=== PATIENT | female | born 1970 | race Caucasian/White ===

== ENCOUNTER 2020-12-03 14:15 | Outpatient (CLI) | payer BC, SELFPAY ==
--- NOTE | ~2020-12-03 | XR_ITS ---
EXAMINATION: XR sacroiliac joints min 3V DATE: 12/03/2020 14:37 INDICATION: Inflammatory arthritis. Rheumatoid arthritis. TECHNIQUE: 3 views of the sacroiliac joints were obtained. COMPARISON: Pelvis radiograph 02/17/2018 FINDINGS: Bone alignment is normal. No fracture. There is severe lumbar spondylosis. There is mild os teoarthritis of the sacroiliac joints. IMPRESSION: 1. Mild osteoarthritis of the sacroiliac joints. No evidence of inflammatory arthropathy. Reviewed, dictated and finalized at location A. IMPRESSION: 1. Mild osteoarthritis of the sacroiliac joints. No evidence of inflammatory ar thropathy.
== END 2020-12-03 14:16 | disposition home or self-care (01) ==
LOC: ANHIMG 14:23
PROVIDERS: PCP Family Medicine; Visit Provider Physician Assistant
DX: M06.4 Inflammatory polyarthropathy (principal); M53.3 Sacrococcygeal disorders, not elsewhere classified
CPT/HCPCS: 72202

== ENCOUNTER 2022-07-22 09:08 | Outpatient (CLI) | payer BC, SELFPAY ==
--- NOTE | ~2022-07-22 | US_ITS ---
US abdomen limited INDICATION: Right upper quadrant pain. PROCEDURE: Realtime right upper abdominal ultrasound. COMPARISON: CT dated 02/11/2014 FINDINGS: The pancreas is normal without focal mass or pancreatic ductal dilation. Liver echotexture is normal without focal mass or intrahepatic biliary dilatation. There is normal directional flow i n the portal vein. There are gallstones. Common bile duct measures 6 mm. No sonographic Rowland's sign. IMPRESSION: 1: Cholelithiasis. Reviewed, dictated and finalized at location L. IMPRESSION: 1: Cholelithiasis.
== END 2022-07-22 09:09 | disposition home or self-care (01) ==
PROVIDERS: PCP Family Medicine; Visit Provider Physician Assistant Medical
DX: K80.20 Calculus of gallbladder without cholecystitis without obstruction (principal)
CPT/HCPCS: 76705

== ENCOUNTER 2022-08-23 09:45 | Outpatient (CLI) | payer BC, SELFPAY ==
--- NOTE | 2022-08-23 09:56 | ECG_ITS ---
Measurements Intervals [place] Rate: 57 P: 42 [place]: 160 QRS: -20 QRSD: 102 T: 24 QT: 423 QTc: 415 Interpretive Statements SINUS BRADYCARDIA MODERATE VOLTAGE CRITERIA FOR LVH, CONSIDER NORMAL VARIANT [MEETS CRITERIA IN ONE OF: R(aVL), S(V1), R(V5), R(V5/V6)+S(V1)] ABNORMAL ECG NO PREVIOUS ECG AVAILABLE FOR COMPARISON Electronically Signed On 08-23-2022 10:43:15 CDT by Hugo Rodriguez M.D.
[2022-08-23 10:47] LABS: Alanine Aminotransferase 124 U/L (6-35); Albumin Level 4.2 g/dL (3.5-5.1); Alkaline Phosphatase 85 U/L (38-126); Amylase 74 U/L (30-110); Aspartate Amino Transferase 45 U/L (14-36); Bilirubin,Total 0.5 mg/dL (0.2-1.3); Lipase 143 U/L (23-300)
== END 2022-08-23 09:46 | disposition home or self-care (01) ==
LOC: ANHSURGERY 09:49
PROVIDERS: PCP Family Medicine; Visit Provider Surgery
DX: K80.10 Calculus of gallbladder with chronic cholecystitis without obstruction (principal); I10 Essential (primary) hypertension; Z01.818 Encounter for other preprocedural examination
CPT/HCPCS: 36415; 80076; 82150; 83690; 86850; 86900; 86901; 93005

== ENCOUNTER 2022-08-25 01:44 | Day surgery (SDC) | payer BC, SELFPAY ==
[2022-08-19 11:12] VITALS: BMI 30.9
--- NOTE | 2022-08-19 11:20 | PC.NURSE ---
Report to the Outpatient Waiting Room, entrance under the green pavilion located off [facility], at time 8:30 on date 08/25/22. Planned Procedure Time: 10:30. Time changes happen often and if your time is changed the preop area will call you the afternoon before. - You and your visitor will be asked to self-screen and do not enter if you have any COVID symptoms. - A mask is optional within the hospital at this time. Patients may have clear liquids (water, carbonated beverages, clear teas, apple juice) until 3 hours prior to surgery (7:30) with a maximum of 20 ounces. - No food from midnight until time of surgery Take the following medications with a SIP of water the morning of surgery: NONE DO NOT STOP ANY OF YOUR OTHER PRESCRIPTION MEDICATIONS PRIOR TO SURGERY?EXCEPT THE FOLLOWING Medications to discontinue per physician: VITAMINS/SUPPLEMENTS Date to take last dose: 08/21/[address] SMITH Please no make-up, nail turkmen, hairspray, perfume, deodorant, or body powder the day of surgery. No jewelry (including any body piercings) or valuables the day of surgery, leave them at home. Please take a shower or bath the night before, or the morning of, surgery with an antibacterial soap (HIBICLENS). Wear comfortable, loose fitting clothing. - Jewelry must be removed prior to entering the operating room. Rings and piercings that are not removed may be cut off. - The hospital will not accept responsibility for valuables. - Please leave all valuables, including medications, at home the day of surgery. If you are going home after surgery, a licensed nascar driver must drive you home. - NO public transportation without another adult if you receive anesthesia. - We recommend that an adult stay with you for 24 hours following discharge. - We also recommend that you do not drive, make important decision, drink alcoholic beverages, or take any drugs that were not prescribed by your health care provider for at least 24 hours after your discharge time. Follow any additional instructions given to you from your surgeon. If you or anyone in your household have experienced Covid symptoms in the past week, please notify your surgeon or the nurse liaison at the phone number below for possible testing. Telephone instructions given to PT - DANIEL PRESTON and asked if any additional questions and then verbalized understanding. Patient advised to call surgeon office or pre surgery nurse liaison [phone] if any additional questions.
[2022-08-25] VITALS (11 sets, daily range): BP systolic 96–158; BP diastolic 51–90; PULSE 52–79; RESP 12–17; TEMP 36.2–36.9; O2SAT 92–100
[2022-08-25] MEDS: ACETAMINOPHEN 500 MG TABLET 1000 MG PO (09:00)
--- NOTE | 2022-08-25 09:03 | P.PNAN_ITS ---
Anes - Initial Pre Proc Eval Procedure: Operation Date: 08/25/22 10:30 Proposed Procedures p Laparoscopic Cholecystectomy - Ángel Estrella MD Date/Time: 08/25/22 09:03 Surgeon: Ángel Estrella MD Pre Op Diagnosis: chronic cholecystitis with stones Patient Data Age: 51 Gender: F Height: 1.63 m Weight: 81.65 kg Allergies Allergy/AdvReac Type Severity Reaction Status Date / Time gadobenic acid Allergy Intermediate Hives Verified 08/25/22 08:51 [From contrast - MRI] Home Medications Medication Instructions Recorded Confirmed Type diclofenac sodium 75 mg 75 mg PO BID 03/03/21 08/25/22 History tablet,delayed release folic acid 1 mg tablet 1 mg PO DAILY 09/02/21 08/25/22 History methotrexate sodium 2.5 mg tablet 15 mg PO WEEKLY 09/02/21 08/19/22 History lisinopril 10 mg tablet 10 mg PO DAILY #90 tabs 06/25/22 08/25/22 Rx Patient hx anesthesia problems: none Family hx anesthesia problems: none Results Review: All pre-operative results and documents have been reviewed as part of the pre- operative evaluation. [facility] Past Medical History Medical History Adult BMI 35.0-35.9 kg/sq m Cervical cancer Essential hypertension Melanoma Surgical History Surgical History History of carpal tunnel release Family History Family History Other Family history of elevated blood lipids Hypertension Social History Social History Smoking status: Never smoker Second hand tobacco smoke exposure: No Alcohol intake: current Drinks per week: 0 Alcohol use details: VERY RARE Substance use: never Substance use type: does not use Living arrangements: with family Occupation/Education: unemployed Gender identity (if verbalized by the patient): Female Sexual Orientation (if Verbalized by the Patient): Straight or Heterosexual Spiritual care concerns: No Agree to blood products: Yes Anes - Eval Final PreProcedure Day of Procedure 08/25/22 09:03 Patient weight: obese Heart: regular rate and rhythm Lungs: clear to auscultation Airway: Mallampati scale class II Neurological: alert and oriented Last oral intake: >/= 8 hours ASA classification: III Emergent: no Anesthetic plan: proceed Anesthesia type and monitoring: general ETT and standard monitoring Results Review: All pre-operative results and documents have been reviewed as part of the pre- operative evaluation. Informed Consent: The patient's anesthetic plan and its attendant risks and benefits were discussed with the patient/family/POA. Questions were solicited and answers provided to the satisfaction of the patient/family/POA.
[2022-08-25] MEDS: LACTATED RINGERS 1,000 ML 30 ML IV CONT ×2 (09:15→10:39)
[2022-08-25] MEDS: KETOROLAC 15 MG/ML VIAL (*BKC) IV PUSH (09:20)
--- NOTE | 2022-08-25 09:39 | WPDHPUPDATE1 ---
History and Physical Update Update Date/Time: 08/25/22 09:39 History and Physical has been reviewed, including an updated exam of the patient. There are NO changes in the patient's condition. Risks, benefits, and alternatives have been discussed and questions answered. Patient agrees to proceed with procedure.
[2022-08-25] MEDS: ceFAZolin 2 GM/D5W 50 ML 2 GM/50 ML BAG IVPB (09:55)
--- NOTE | 2022-08-25 10:55 | P.OP_ITS ---
Procedure Note - Detailed Date of Procedure 08/25/22 Pre-op Diagnosis chronic cholecystitis with stones Post-op Diagnosis Same Procedure Performed Laparoscopic cholecystectomy Surgeon Ángel Estrella MD [employer] Judi Jasso [facility] Anesthesia General and Local Indications Patient has been experiencing mid back pain that radiates around to the right upper quadrant particularly after fatty meals. She had a gallbladder ultrasound which showed multiple gallstones. She has lost 40-50 lb by choice. She has a strong family history of gallbladder disease as well. She is taken to surgery now for laparoscopic cholecystectomy. Findings Gallbladder had chronic inflammatory changes with mild gallbladder wall thickening and adhesions. The gallbladder itself was completely filled with gallstones. There was no biliary ductal dilatation. No liver abnormalities were appreciated. Description of Procedure Patient was taken to surgery and induced into general anesthesia. The abdomen i s prepped and draped. Trocars were placed in the usual fashion using [email or web address] optical trocars and a 5 mm camera. The gallbladder was freed from adhesions and retracted anterosuperiorly. The gallbladder was literally filled with gallstones and there was no value in trying to decompress it with a laparoscopic aspirator as there was very little fluid within. Once the gallbladder was retracted, we placed traction on the infundibulum and dissected in the cholecystohepatic triangle. The cystic duct and cystic artery were dissected out very clearly. The gallbladder was dissected off the liver at its lower 3rd. Critical view was achieved. We then securely clipped and divided the cystic duct and cystic artery. The gallbladder was continued to be dissected free of its attachments to the liver. Cautery was used for hemostasis during this dissection. Once the gallbladder was freed, it was placed in an Endo-Catch bag and retrieved through the 10 11 epigastric trocar. Due to the n umber of gallstones and the slightly thickened gallbladder wall, the epigastric trocar site had to be slightly enlarged to accommodate the gallbladder. After the gallbladder was removed, we replaced the epigastric trocar reviewed the right upper quadrant. Gallbladder fossa was quite dry and there was no evidence of bleeding or bile leakage. We then evacuated CO2 and removed the trocar sleeves. Fascia at the epigastric trocar site was closed with 0 Vicryl suture. The subcutaneous was closed with 3-0 Vicryl suture. All skin wounds were closed with subcuticular 4-0 Monocryl skin suture. The wounds were dressed with Exofin surgical adhesive. The patient was awakened and taken to recovery in good condition. Sponge needle counts were correct x2. Estimated Blood Loss -5 Drains No Packing No Pathology Yes (Gallbladder) Complications No immediate complications Condition Stable Disposition PACU [facility] Billing Surgery - Charge Forward: Surgery Billing (Laparoscopic cholecystectomy)
[2022-08-25] MEDS: fentaNYL CITRATE INJ (*CRX) 100 MCG/2 ML VIAL 25 MCG IV PUSH ×3 (11:08→11:25)
[2022-08-25] MEDS: oxyCODONE HCL (*CRX) 5 MG TAB IR PO (11:43)
[2022-08-25] MEDS: ONDANSETRON INJ 4 MG/2 ML VIAL IV PUSH (12:31)
== END 2022-08-25 13:06 | disposition home or self-care (01) ==
PROVIDERS: PCP Family Medicine; Visit Provider Surgery
PROC: 0FT44ZZ Resection of Gallbladder, Percutaneous Endoscopic Approach (ICD-10-PCS; CPT 47562; principal; 2022-08-25 10:30)
DX: K80.10 Calculus of gallbladder with chronic cholecystitis without obstruction (principal); I10 Essential (primary) hypertension; E66.9 Obesity, unspecified; Z68.30 Body mass index [BMI] 30.0-30.9, adult
CPT/HCPCS: 47562; 88304; A9270; C1713; J0690; J1100; J1885; J2250; J2405; J2704; J3010; J7030; J7120

== ENCOUNTER 2023-06-23 14:06 | Outpatient (CLI) | payer BC, SELFPAY ==
--- NOTE | ~2023-06-23 | XR_ITS ---
XR knee LT 3V 06/23/2023 14:21 Indication: Left knee pain Procedure: 3 views left knee Comparison: 02/17/2018 Findings: No fracture, subluxation or dislocation. There is mild patellofemoral compartment osteoarth ritis. Impression: 1: Mild osteoarthritis. Reviewed, dictated and finalized at location B. Impression: 1: Mild osteoarthritis.
== END 2023-06-23 14:07 ==
PROVIDERS: PCP Family Medicine; Visit Provider Physician Assistant
DX: M17.12 Unilateral primary osteoarthritis, left knee (principal)
CPT/HCPCS: 73562

== ENCOUNTER 2023-10-24 13:27 | Outpatient (CLI) | payer BC, SELFPAY ==
--- NOTE | ~2023-10-24 | MM_ITS ---
EXAMINATION: MM screening julissa BI w nazario HISTORY: Screening TECHNIQUE: Craniocaudal and mediolateral oblique 3-D tomosynthesis images were obtained and synthetic 2-D images were generated. CAD analysis was submitted and interpreted. COMPARISON: No prior studies for comparison. BREAST PARENCHYMAL COMPOSITION: Not dense: There are scattered areas of fibroglandular density. FINDINGS: There are asymmetries in the upper outer quadrant of the right breast. No mammographic evid ence for malignancy in the left breast. IMPRESSION: 1. Right breast asymmetries. 2. Recommend comparison to previous outside mammograms. BI-RADS Category 0: Incomplete: Needs additional imaging evaluation. Reviewed, dictated and finalized at location B.
== END 2023-10-24 13:28 ==
LOC: MICIMG 13:28
PROVIDERS: PCP Family Medicine; Visit Provider Family Medicine
DX: Z12.31 Encounter for screening mammogram for malignant neoplasm of breast (principal); R92.8 Other abnormal and inconclusive findings on diagnostic imaging of breast
CPT/HCPCS: 77063; 77067

== ENCOUNTER 2023-12-12 13:39 | Outpatient (CLI) | payer BC, SELFPAY ==
--- NOTE | ~2023-12-12 | DEXA_ITS ---
Bone Density Report Name: DANIEL PRESTON Age: 53 Sex: Female Ethnicity: White Date of : 1970 Indication: postmenopausal; screening for osteoporosis; cancer; rheumatoid arthritis; secondary osteoporosis; Referring Provider: Alma Herrera Study: Bone densitometry was performed. Exam Date: December 12, 2023 Accession number: [id number] Bone Density: Region BMD T-score Z-score Classification AP Spine(L1-L4) 1.121 0.7 1.7 Normal Femoral Neck (Left) 0.793 -0.5 0.6 Normal Total Hip (Left) 1.065 1.0 1.7 Normal Femoral Neck (Right) 0.746 -0.9 0.1 Normal Total Hip (Right) 1.012 0.6 1.3 Normal Femoral Neck Mean 0.770 -0.7 0.3 Normal Total Hip Mean 1.039 0.8 1.5 Normal World Health Organization criteria for BMD impression classify patients as: Normal (T-score at or above -1.0), Osteopenia (T-score between -1.0 and -2.5), or Osteoporosis (T-score at or below -2.5). 10-year Fracture Risk: FRAX not reported because: All T-scores for Spine Total, Hip Total, Femoral Neck at or above -1.0 Clinical Information Provided by Patient: Has rheumatoid arthritis Has secondary osteoporosis Has the following medical conditions: Cancer Patient maximum height was 64 No regular weight bearing exercise Drinks caffeinated beverages Onset of menses at age 9 Number of children 2 Impression: The patient has normal bone mass. Discussion: BONE DENSITY IS ABOVE THE MINIMUM DESIRABLE LEVEL AT ALL SKELETAL SITES TESTED. This patient?s bone mineral density is above the minimum desirable level (T-score -1.0 or better) at all sites measured. The patient should follow a healthful lifestyle (good nutrition with adequate calcium and vitamin D, and appropriate weight-bearing exercise). Follow-Up: Consider repeating this study in 5 years or sooner if there is some new clinical indication. Reported by: SANA on 12/12/2023 2:03:00 PM. Reviewed, dictated and finalized at location AAlexi TANG
== END 2023-12-12 13:40 | disposition home or self-care (01) ==
LOC: CHSIMG 13:42
PROVIDERS: PCP Family Medicine; Visit Provider Family Medicine
DX: Z78.0 Asymptomatic menopausal state (principal)
CPT/HCPCS: 77080

== ENCOUNTER 2024-11-23 12:18 | Outpatient (CLI) | payer BC, SELFPAY ==
--- NOTE | ~2024-11-23 | XR_ITS ---
XR cervical spine 4-5V Indication: Cervicalgia, chronic cervical pain Comparison: None Findings: Grade 1 anterolisthesis C4 on C5, no fracture. No subluxation in flexion and extension. Severe loss of disc at C5-6 and C6-7. Soft tissues unremarkable Impression: No acute abnormality. Reviewed, dictated and finalized at location P. Impression: No acute abnormality.
--- OUTSIDE RECORDS SUMMARY | 2024-11-23 12:22 | XMS_ITS | Clinical Summary ---
Author Organization [facility] Address [address] [place] [address] Care Team Providers Care Trouble Tracer Name Role Phone Alma Herrera MD Primary Care Provider [phone] Lorraine Maki MD PhD Unavailable + Sana Campbell MD Unavailable [phone] Rosemary Elizalde MD Unavailable [phone] De Granados MD Unavailable Allergies Active Allergy Reactions Criticality Noted Date Comments Gadolinium-Containing Contrast Media Hives Medium 04/27/2022 The patient developed hives on her neck with mild associated pruritus shortly after administration of MRI contrast material for MRI examination. Vitals remained stable. Medications lisinopriL (PRINIVIL,ZESTR IL) 10 mg tablet Take 1 tablet (10 mg total) by mouth daily 08/30/2021 Active folic acid (FOLVITE) 1 mg tablet Take 2 tablets (2,000 mcg total) by mouth daily 60 tablet 11 09/14/2024 Active etodolac (LODINE) 500 mg tablet Take 1 tablet by mouth twice daily 60 tablet 1 10/15/2024 Active methotrexate 2.5 mg tabletIndicatio ns:autoimmune disease Take 10 tablets (25 mg total) by mouth every 7 days 120 tablet 1 10/17/2024 Active predniSONE (DELTASONE) 5 mg tablet Take 4 tablets by mouth daily x3 days, then 3 tabs daily x3 days, then 2 tabs daily x3 days, then 1 tab daily x3 days. 30 tablet 10/17/2024 Active Active Problems Problem Noted Date Diagnosed Date Dry eyes 09/14/2024 Assessment & Plan (09/14/2024 12:26 PM CDT): Follows with eye doctor at [facility] in [place]. Using steroid drops TID with benefit but notes she is unable to wear contacts when doing drops routinely. Glasses give her a headache. -Recommend lubricating gel eye drops at night. -Recommend sleeping with a humidifier at her bedside. -If symptoms progress, could consider pilocarpine vs cevimeline. Left elbow pain 06/08/2024 Assessment & Plan (09/14/2024 12:23 PM CDT): Suspect lateral epicondylitis. Has been resting and did trial of prednisone with no great relief. Symptoms are more tolerable sine last visit though. Could consider PT vs localized steroid injection if needed. Continue etodolac. Assessment & Plan (06/08/2024 11:50 AM CDT): C/o left elbow and left hand pain which started after using a chainsaw but she has been resting it for 3 weeks without improvement. Suspect potential flare vs overactivity. Currently using CBD cream and etodolac without much relief. Will trial short course of prednisone and monitor for improvement of symptoms. Acute pain of left knee 12/02/2022 Overview (06/28/2023): XR L knee 05/2023: mild patellofemoral OA Assessment & Plan (12/09/2023 11:45 AM CDT): Pain medially. XR showed mild patellofemoral OA. Finished PT and felt she may have a meniscus tear and OA. She previously deferred MRI as she deferred possibility of surgery but may reconsider in the future. Continue HEP, topical voltaren vs biofreeze, and kinesio taping. Could consider intra-articular injection should pain progress. Assessment & Plan (09/09/2023 11:54 AM CDT): Pain medially. XR showed mild patellofemoral OA. Finished PT and felt she may have a meniscus tear and OA. She defers MRI as she defers possibility of surgery at this time. Continue HEP, topical voltaren vs biofreeze, and kinesio taping. Could consider intra-articular injection should pain progress. Assessment & Plan (06/10/2023 1:58 PM CDT): Improved with intra-articular kenalog injection on 12/02/22. Still with some residual pain over the medial knee which appears mechanical. Will get baseline XR and start PT. If no improvement, then consider MRI next. Assessment & Plan (03/03/2023 1:53 PM SPECIALTY THERAPIST): Improved with intra-articular kenalog injection on 12/02/22. Still with some residual pain over the medial knee which appears mechanical so will give handout of home exercises today. Assessment & Plan (12/02/2022 4:44 PM CDT): C/o worsening pain in left knee causing pain/swelling in the pes anserine bursa. Also notes pain now in the right knee and hip and feels this may be due to compensating for the left side. Will give intra-articular injection today. Stop nabumetone and start etodolac. If no benefit, consider updated XR and PT next. Discussed options with patient who agrees to a left knee intra-articular kenalog injection today. Patient was advised of the potential side effects of the medication, including but not limited to increased blood sugar, weight gain, avascular necrosis, glaucoma, cataracts, and/or osteoporosis. Discussed risk of infection with joint injection. Area prepped with betadine and alcohol swabs. 40mg of kenalog injected into the left tibiofemoral joint space by Dr. Granados. Bandage applied. Patient tolerated procedure well. Chronic pain of right knee 08/06/2021 Assessment & Plan (08/06/2021 11:25 AM CDT): C/o medial knee pain. Previously XR have been unremarkable and pain is exacerbated by activity suggesting mechanical pain. Continue otc Voltaren gel prn. Should pain persist, could consider PT. Tinnitus of both ears 06/19/2021 Chronic bilateral low back pain without sciatica 01/07/2021 Overview (01/07/2021): Negative HLA-B27 XR SI joint 12/03/20: Severe lumbar spondylosis with mild osteoarthritis of the SI joints; no evidence of inflammatory arthropathy Assessment & Plan (01/07/2021 12:54 PM SPECIALTY THERAPIST): Negative HLA-B27. XR SI joints showed mild OA of the SI joints which remains unchanged from previous imaging. XR also showed severe lumbar spondylosis. Improvement with diclofenac 75mg BID and will continue this. Discussed PT vs HEP if pain would progress. Ganglion cyst of dorsum of left wrist 12/03/2020 Assessment & Plan (12/03/2020 12:15 PM CDT): Will give referral to hand ortho Dr. Osman for further evaluation and treatment. Bilateral chronic knee pain 10/10/2019 Overview (10/10/2019): Xray knees (02/17/18): nml mango Assessment & Plan (06/04/2020 12:02 PM CDT): Previous x-rays were normal. Notes pain worse with stairs/bending suggesting mechanical pain. Given exercises for knee strengthening previously but patient has not done these. Encouraged doing these exercises. Also recommend Voltaren gel otc. Assessment & Plan (01/30/2020 12:01 PM SPECIALTY THERAPIST): Previous x-rays were normal. Notes pain worse with stairs/bending suggesting mechanical pain. Given xercises for knee strengthening last visit but patient has not done these. Encouraged doing these exercises. Also recommend Voltaren gel otc. Assessment & Plan (10/10/2019 11:58 AM CDT): Previous x-rays were normal. Notes pain worse with stairs/bending suggesting mechanical pain. Will give exercises for knee strengthening. Greater trochanteric bursitis of right hip 04/11 Assessment & Plan (12/03/2020 12:14 PM CDT): Resolved. Assessment & Plan (01/30/2020 12:01 PM SPECIALTY THERAPIST): Patient defers PT. Has not done exercises from handout yet. Encouraged to do the exercises. If symptoms continue, could consider formal PT vs CSI. Assessment & Plan (10/10/2019 11:57 AM CDT): Patient defers PT. Has not done exercises from handout yet. Encouraged to do the exercises. If symptoms continue, could consider formal PT vs CSI. Assessment & Plan (07/10/2019 11:57 AM CDT): Patient defers PT. Has not done exercises from handout yet. Encouraged to do the exercises. If symptoms continue, could consider formal PT vs CSI. Assessment & Plan (04/11/2019 12:24 PM SPECIALTY THERAPIST): Patient defers PT. Will give handout of home exercises. Is symptoms continue, could consider formal PT vs CSI. 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 Eye exam UTD: 2024 Assessment & Plan (06/08/2024 11:43 AM CDT): Routine lab monitoring. Eye exam UTD: 2022; scheduled for eye exam next month. Assessment & Plan (03/09/2024 10:48 AM SPECIALTY THERAPIST): Routine lab monitoring. Eye exam UTD: 2022 Assessment & Plan (12/09/2023 11:22 AM CDT): Routine lab monitoring. Eye exam UTD: 2022 Assessment & Plan (09/09/2023 11:13 AM CDT): Routine lab monitoring. Eye exam UTD: 2022 Assessment & Plan (06/10/2023 12:38 PM CDT): Routine lab monitoring. Eye exam UTD: 2022 Assessment & Plan (03/03/2023 1:53 PM SPECIALTY THERAPIST): Routine lab monitoring. Eye exam UTD: 2022 Assessment & Plan (12/02/2022 4:38 PM CDT): Routine lab monitoring. Eye exam UTD: 2022 Assessment & Plan (11/02/2022 12:52 PM CDT): Routine lab monitoring. Eye exam UTD: 2022 Assessment & Plan (06/29/2022 11:05 AM CDT): Routine lab monitoring. Eye exam UTD: 2021 Assessment & Plan (03/30/2022 11:30 AM SPECIALTY THERAPIST): Routine lab monitoring. Eye exam UTD: 2021 Assessment & Plan (12/07/2021 11:59 AM CDT): Routine lab monitoring. Eye exam UTD: 2021 Assessment & Plan (09/07/2021 3:31 PM CDT): Routine lab monitoring. Eye exam UTD: 2021 Assessment & Plan (08/06/2021 11:21 AM CDT): Routine lab monitoring. Eye exam UTD: 2021 Assessment & Plan (07/08/2021 10:44 AM CDT): Routine lab monitoring. Eye exam UTD: 2021 Assessment & Plan (01/07/2021 1:03 PM SPECIALTY THERAPIST): Routine lab monitoring. Eye exam UTD: 12/2019 Assessment & Plan (12/03/2020 11:37 AM CDT): Routine lab monitoring. Eye exam UTD: 12/2019 Assessment & Plan (06/04/2020 12:01 PM CDT): Routine lab monitoring. Eye exam UTD: 12/2019 Assessment & Plan (01/30/2020 12:00 PM SPECIALTY THERAPIST): Eye exam UTD: 12/2019 Assessment & Plan (10/10/2019 11:36 AM CDT): Eye exam UTD: 07/19/2019 Assessment & Plan (07/10/2019 11:57 AM CDT): Eye exam UTD: 04/2018 - due for eye exam. Assessment & Plan (04/11/2019 12:21 PM SPECIALTY THERAPIST): Eye exam UTD: 04/2018, f/u with eye doctor 04/2019. Assessment & Plan (01/09/2019 11:59 AM SPECIALTY THERAPIST): Eye exam UTD: 04/2018 Assessment & Plan (10/10/2018 4:43 PM CDT): Eye exam UTD: 04/2018 Assessment & Plan (07/11/2018 1:31 PM CDT): Eye exam UTD: 04/2018 Inflammatory arthritis 02/15/2018 Overview (01/07/2021): Based on previous ambiguous serologies regarding rheumatoid factor as well as joint stiffness and PD seen in a few PIP joints on US, symptoms are suspicious for an underlying inflammatory arthritis such as a rheumatoid arthritis vs seronegative rheumatoid arthritis. Xray Lt foot (02/17/18): degenerative calcaneal enthesophyte Xray Rt foot (02/17/18): mod OA 1st MTP Xray hands (02/17/18): nml mango Xray knees (02/17/18): nml mango Xray L-spine (02/17/18): mod disc disease L4-S1, mild/mod facet arthropathy Xray pelvis (02/17/18): mild OA SI jts Labs (02/15/18): +RF (25), elevated CRP Avise (02/15/18): JEAN-CLAUDE pos by katie, neg by IFA Labs (12/03/20): CRP 8.0, neg HLA-B27 XR SI joint 12/03/20: Severe lumbar spondylosis with mild osteoarthritis of the SI joints; no evidence of inflammatory arthropathy US L hand/wrist (03/13/18): Moderate synovial thickening/effusion with grade 1 PD in the wrist. Mild 3rd MCP synovial thickening. Grade 1 PD in the 2nd and 4th PIPs on examination which will have to be correlated clinically. US L hand/wrist (12/17/2020): Mild/moderate synovial thickening/effusion with grade 2 power Doppler at the wrist. Moderate 2nd PIP and marked 3rd PIP synovial thickening on examination which will have to be correlated clinically. 4th compartment effusion. Comparison to 03/13/18 there is increased synovial thickening. Assessment & Plan (09/14/2024 12:22 PM CDT): Low cdai. Mild joint pain without any obvious synovitis noted on exam today. She is concerned regarding vision changes and if HCQ could be contributing. Recent eye exam was reportedly normal but does have dry eyes. She prefers to stop HCQ due to risk with contributing eye issues. -Stop HCQ. -Continue MTX 20mg weekly and folic acid 1mg daily. -Should joint symptoms worsen off HCQ, could consider either increasing MTX vs addition of AZA or SSZ. -Continue etodolac 500mg BID. -Continue using voltaren gel otc prn pain as she notes benefit with this. -Routine labs today. -Follow up in 3 months. Sooner if needed. Assessment & Plan (06/08/2024 11:43 AM CDT): Moderate cdai. Mild synovitis and tenderness noted on exam today. Restarted HCQ 200mg BID in 08/2023 without s/e and noticing overall improvement of baseline pain and has been able to be more active. -Continue HCQ 200mg BID. Risks of retinal toxicity were discussed with the patient. They are aware that they should get at least yearly eye exams, unless otherwise specified. -Continue MTX 20mg weekly and folic acid 1mg daily. -Continue etodolac 500mg BID. -Continue using voltaren gel otc prn pain as she notes benefit with this. -Routine labs today. -Follow up in 3-4 months. Sooner if needed. Assessment & Plan (03/09/2024 10:49 AM SPECIALTY THERAPIST): Low cdai. No obvious synovitis with mild tenderness noted on exam today. Restarted HCQ 200mg BID in 08/2023 without s/e and noticing overall improvement of baseline pain and has been able to be more active. -Continue HCQ 200mg BID. Risks of retinal toxicity were discussed with the patient. They are aware that they should get at least yearly eye exams, unless otherwise specified. -Continue MTX 20mg weekly and folic acid 1mg daily. -Continue etodolac 500mg BID. -Continue using voltaren gel otc prn pain as she notes benefit with this. -Routine labs today. -Follow up in 3-4 months. Sooner if needed. Assessment & Plan (12/09/2023 11:50 AM CDT): Low cdai. No obvious synovitis with mild tenderness noted on exam today. Restarted HCQ 200mg BID in 08/2023 without s/e. C/o increased pain/soreness today but has been more active lately. -Continue HCQ 200mg BID. Risks of retinal toxicity were discussed with the patient. They are aware that they should get at least yearly eye exams, unless otherwise specified. -Continue MTX 20mg weekly and folic acid 1mg daily. -Continue etodolac 500mg BID. -Continue using voltaren gel otc prn pain as she notes benefit with this. -Routine labs today. -Follow up in 3-4 months. Sooner if needed. Assessment & Plan (09/09/2023 11:52 AM CDT): Moderate cdai. Mild synovitis and tenderness noted mainly in the left hand on peripheral exam today. Switched from HCQ to MTX 06/2021 after c/o increased frequency of joint flares with overall improvement of joint pain. Discussed restarting HCQ due to pain complaints and she is agreeable at this time. Restart HCQ 200mg BID. Risks of retinal toxicity were discussed with the patient. They are aware that they should get at least yearly eye exams, unless otherwise specified. Continue MTX 20mg weekly and folic acid 1mg daily. Continue etodolac 500mg BID. Using voltaren gel otc prn pain with benefit as well. Routine labs today. Follow up in 3-4 months. Sooner if needed. Assessment & Plan (06/10/2023 1:57 PM CDT): Moderate cdai. Mild synovitis and tenderness noted mainly in both wrists on peripheral exam today. Switched from HCQ to MTX 06/2021 after c/o increased frequency of joint flares with overall improvement of joint pain. Discussed restarting HCQ due to pain complaints however she defers today. Continue MTX 20mg weekly and folic acid 1mg daily. Should LFTs elevate with increased MTX and joint pain continues to worsen, could consider restarting HCQ in the future if necessary. Continue etodolac 500mg BID. Using voltaren gel otc prn pain with benefit as well. Routine labs today. Follow up in 3-4 months. Sooner if needed. Assessment & Plan (03/03/2023 1:52 PM SPECIALTY THERAPIST): Low cdai. No obvious synovitis with minimal tenderness noted on peripheral exam today. Switched from HCQ to MTX 06/2021 after c/o increased frequency of joint flares with overall improvement of joint pain. Repeat L hand/wrist US did show some increased synovial thickening suggesitng progression of inflammation but did not reveal any erosive damage. Repeat XR SI joints showed mild DJD and severe lumbar spondylosis which is likely cause for her back pain. HLA-B27 was negative. Continue MTX 20mg weekly and folic acid 1mg daily. Should LFTs elevate with increased MTX and joint pain continues to worsen, could consider restarting HCQ in the future if necessary. Continue etodolac 500mg BID. Using voltaren gel otc prn pain with benefit as well. Routine labs today. Follow up in 3-4 months. Sooner if needed. Assessment & Plan (12/02/2022 4:41 PM CDT): Moderate cdai. Mild synovitis with tenderness noted on peripheral exam today. Switched from HCQ to MTX 06/2021 after c/o increased frequency of joint flares with overall improvement of joint pain. However due to recent increased joint complaint in the hands, we titrated MTX to 20mg weekly last visit without much improvement however she denies any s/e so will give this more time. Repeat L hand/wrist US did show some increased synovial thickening suggesitng progression of inflammation but did not reveal any erosive damage. Repeat XR SI joints showed mild DJD and severe lumbar spondylosis which is likely cause for her back pain. HLA-B27 was negative. Continue MTX 20mg weekly and folic acid 1mg daily. Should LFTs elevate with increased MTX and joint pain continues to worsen, could consider restarting HCQ in the future if necessary. Stop nabumetone and start etodolac 500mg BID. Using voltaren gel otc prn pain with benefit as well. Routine labs today. Follow up in 3 months. Sooner if needed. Seen with Dr. Granados. Assessment & Plan (11/02/2022 1:25 PM CDT): Low-moderate cdai. Minimal synovitis with increased tenderness noted on peripheral exam today. Switched from HCQ to MTX 06/2021 after c/o increased frequency of joint flares with overall improvement of joint pain. Due to recent increased joint complaint in the hands, we discussed increasing MTX to 20mg weekly which she is agreeable to at this time. Repeat L hand/wrist US did show some increased synovial thickening suggesitng progression of inflammation but did not reveal any erosive damage. Repeat XR SI joints showed mild DJD and severe lumbar spondylosis which is likely cause for her back pain. HLA-B27 was negative. Increase MTX 20mg weekly and continue folic acid 1mg daily. Should LFTs elevate with increased MTX and joint pain continues to worsen, could consider restarting HCQ in the future if necessary. Stop Diclofenac and start nabumetone 750mg BID. Using voltaren gel otc prn pain with benefit as well. Routine labs today. Follow up in 34 weeks. Sooner if needed. Assessment & Plan (06/29/2022 11:27 AM CDT): Low cdai. Minimal synovitis with mild tenderness noted on peripheral exam today. Switched from HCQ to MTX 06/2021 after c/o increased frequency of joint flares with improvement of joint pain. Denies any s/e to MTX.C/o some recent increased pain but is tolerable and she defers changes to tx plan at this time. Overall, she has been doing very well with MTX and her activity level has increased. Recent repeat L hand/wrist US did show some increased synovial thickening suggesitng progression of inflammation but did not reveal any erosive damage. Repeat XR SI joints showed mild DJD and severe lumbar spondylosis which is likely cause for her back pain. HLA-B27 was negative. Continue MTX 15mg weekly and continue folic acid 1mg daily. Would defer increasing MTX in the future if LFTs remain mildly elevated. Could consider restarting HCQ in the future if necessary. Continue diclofenac 75mg BID but if doing well can reduce to PRN. Using voltaren gel otc prn pain with benefit as well. Routine labs today. Follow up in 3-4 months. Sooner if needed. Assessment & Plan (03/30/2022 11:30 AM SPECIALTY THERAPIST): Low cdai. No obvious synovitis with mild tenderness noted on peripheral exam today. Switched from HCQ to MTX 06/2021 after c/o increased frequency of joint flares with improvement of joint pain. Denies any s/e to MTX. Overall, she has been doing very well with MTX and her activity level has increased. Recent repeat L hand/wrist US did show some increased synovial thickening suggesitng progression of inflammation but did not reveal any erosive damage. Repeat XR SI joints showed mild DJD and severe lumbar spondylosis which is likely cause for her back pain. HLA-B27 was negative. Continue MTX 15mg weekly and continue folic acid 1mg daily. Would defer increasing MTX in the future if LFTs remain mildly elevated. Could consider restarting HCQ in the future if necessary. Continue diclofenac 75mg BID but if doing well can reduce to PRN. Using voltaren gel otc prn pain with benefit as well. Routine labs today. Follow up in 3-4 months. Sooner if needed. Assessment & Plan (12/07/2021 11:59 AM CDT): Low cdai. No obvious synovitis with some tenderness noted on peripheral exam today. Switched from HCQ to MTX 06/2021 after c/o increased frequency of joint flares and notices improvement of pain. Denies any s/e to MTX. Overall, she has been doing very well with increased MTX and her activity level has increased. Recent repeat L hand/wrist US did show some increased synovial thickening suggesitng progression of inflammation but did not reveal any erosive damage. Repeat XR SI joints showed mild DJD and severe lumbar spondylosis which is likely cause for her back pain. HLA-B27 was negative. Continue MTX 15mg weekly and continue folic acid 1mg daily. Would defer increasing MTX in the future if LFTs remain mildly elevated. Could consider restarting HCQ in the future if necessary. Continue diclofenac 75mg BID but if doing well can reduce to PRN. Using voltaren gel otc prn pain with benefit as well. Routine labs today. Follow up in 3 months. Sooner if needed. Assessment & Plan (09/07/2021 3:33 PM CDT): Moderate cdai. Mild synovitis and tenderness noted on peripheral exam today. Switched from HCQ to MTX 06/2021 after c/o increased frequency of joint flares and notices improvement of pain. Denies any s/e to MTX. Overall, she has been doing well with increased MTX and her activity level has increased as well. She defers increasing the dose at this time. Recent repeat L hand/wrist US did show some increased synovial thickening suggesitng progression of inflammation but did not reveal any erosive damage. Repeat XR SI joints showed mild DJD and severe lumbar spondylosis which is likely cause for her back pain. HLA-B27 was negative. Continue MTX 15mg weekly and continue folic acid 1mg daily. Could consider restarting HCQ in the future if necessary. Continue diclofenac 75mg BID. Using voltaren gel otc prn pain with benefit as well. Routine labs today. Follow up in 3 months. Sooner if needed. Assessment & Plan (08/06/2021 11:24 AM CDT): Low cdai. Mild synovitis and tenderness noted on peripheral exam today. Switched from HCQ to MTX 06/2021 after c/o increased frequency of joint flares and noticing some improvement of pain. Denies any s/e to MTX and willing to increase the dose at this time. Recent repeat L hand/wrist US did show some increased synovial thickening suggesitng progression of inflammation but did not reveal any erosive damage. Repeat XR SI joints showed mild DJD and severe lumbar spondylosis which is likely cause for her back pain. HLA-B27 was negative. Increase MTX 15mg weekly and continue folic acid 1mg daily. Could consider restarting HCQ in the future if necessary. Continue diclofenac 75mg BID. Using voltaren gel otc prn pain with benefit as well. Routine labs today. Follow up in 1 month. Sooner if needed. Assessment & Plan (07/08/2021 10:42 AM CDT): Low cdai. Mild synovitis and tenderness noted on peripheral exam today; however has been experiencing more flares lately and is wanting to reconsider MTX at this time. Recent repeat L hand/wrist US did show some increased synovial thickening suggesitng progression of inflammation but did not reveal any erosive damage. Repeat XR SI joints showed mild DJD and severe lumbar spondylosis which is likely cause for her back pain. HLA-B27 was negative. Pt prefers to stop HCQ at this time so will stop and start MTX 10mg weekly and folic acid 1mg daily. Patient advised of the side effects of the medication, including but not limited to increased risk of infection, GI upset, increased LFTs, mouth sores, rash, diarrhea, and/or blood count abnormalities. Could consider restartin HQC in the future if necessary. Continue diclofenac 75mg BID. Using voltaren gel otc prn pain with benefit as well. Patient previously given informational handout about MTX. Routine labs today. Follow up in 1 month. Sooner if needed. Assessment & Plan (01/07/2021 1:03 PM SPECIALTY THERAPIST): Low cdai. Mild synovitis with improvement of tenderness noted on peripheral exam today since starting diclofenac. Recent repeat L hand/wrist US did show some increased synovial thickening suggesitng progression of inflammation but did not reveal any erosive damage. Repeat XR SI joints showed mild DJD and severe lumbar spondylosis which is likely cause for her back pain. HLA-B27 was negative. Briefly discussed addition of low dose MTX based on US findings, however she feels she is doing better overall since addition of diclofenac and prefers to continue with this for now. Continue diclofenac 75mg BID and HCQ 200mg BID. Using voltaren gel otc prn pain with benefit as well. Continue routine eye exams to monitor for plaquenil toxicity. Patient given informational handout atoub MTX. Advised to call if she would want to start MTX prior to her next f/u. Follow up in 6 months. Sooner if needed. Assessment & Plan (12/03/2020 12:17 PM CDT): High cdai. Mild synovitis with worsening tenderness noted on peripheral exam today. Eye exam UTD 12/2019. C/o worsening pain in her hands, toes, and low back all worse at night and first thing in the mornings. SI joints are tender on exam, previous XR showed mild degenerative changes at the SI joints, and SI pain previously responded to Celebrex so symptoms are suspicious for inflammatory back pain. Loss of benefit with Celebrex so will discontinue. Low back involvement of symptoms is increasinly suspicious for a spondyloarthritis. Repeat L hand/wrist US to further evaluate for any progression of an inflammatory arthritis. Will start diclofenac 75mg BID. Continue HCQ 200mg BID. Using voltaren gel otc prn pain with benefit as well. Continue routine eye exams to monitor for plaquenil toxicity. Routine labs today as well as HLA-B27. Follow up in 1 month. Sooner if needed. Assessment & Plan (06/04/2020 12:00 PM CDT): Cdai in remission. No obvious synovitis or tenderness noted on peripheral exam today. Eye exam UTD 12/2019. Overall, patient feels she is doing well since being on treatment. Continue HCQ 200mg BID and celebrex 200mg BID. Using voltaren gel otc prn pain with benefit as well. Continue routine eye exams to monitor for plaquenil toxicity. Routine labs today. Follow up in 6 months. Sooner if needed. Assessment & Plan (01/30/2020 12:01 PM SPECIALTY THERAPIST): Moderate cdai. Minimal synovitis with tenderness noted on peripheral exam today. Eye exam UTD 12/2019. Overall, patient feels she is doing well since being on treatment. Continue HCQ 200mg BID and celebrex 200mg BID. Using voltaren gel otc prn pain with benefit as well.Continue routine eye exams to monitor for plaquenil toxicity. Routine labs today. Follow up in 4 months. Sooner if needed. Assessment & Plan (10/10/2019 11:58 AM CDT): Low cdai. Minimal synovitis with tenderness noted on peripheral exam today. Overall, patient feels she is doing well since being on treatment. Continue HCQ 200mg BID and celebrex 200mg BID. Continue routine eye exams to monitor for plaquenil toxicity. Routine labs today. Follow up in 4 months. Sooner if needed. Assessment & Plan (07/10/2019 11:55 AM CDT): Moderate cdai. Minimal synovitis with increased tenderness noted on peripheral exam today. Overall, patient feels she is doing well since being on treatment. Continue HCQ 200mg BID and celebrex 200mg BID. Continue routine eye exams to monitor for plaquenil toxicity. Routine labs today. Follow up in 3-4 months. Sooner if needed. Assessment & Plan (04/11/2019 12:22 PM SPECIALTY THERAPIST): Low cdai. No obvious synovitis with minimal tenderness noted on peripheral exam today. Overall, patient continues to do well on current treatment. Continue HCQ 200mg BID and celebrex 200mg BID. Continue routine eye exams to monitor for plaquenil toxicity. Routine labs today. Follow up in 3 months. Sooner if needed. Assessment & Plan (01/09/2019 12:03 PM SPECIALTY THERAPIST): Low cdai. Swelling and tenderness noted in the left 4th DIP on exam today. Noted flare that lasted about 1 month after she fell in her yard. Overall feels she has improved with current treatment. Continue HCQ 200mg BID and celebrex 200mg BID. Continue routine eye exams to monitor for plaquenil toxicity. Routine labs today. Follow up in 3 months. Sooner if needed. Assessment & Plan (10/10/2018 4:45 PM CDT): Low cdai. No obvious synovitis or tenderness noted on peripheral joint exam today. Biggest complaint is low back/SI joint pain. Previous radiographs did reveal OA in the lumbar spine and SI joints and she notes pain is worse with activity. Failed meloxicam in the past. Continue HCQ 200mg BID. Will start celebrex 200mg BID prn for joint pain. Eye exam UTD 04/2018. Follow up in 3 months. Sooner if needed. Assessment & Plan (07/11/2018 1:51 PM CDT): Moderate cdai. No obvious synovitis, however tenderness across a few PIP joints bilaterally. Has been having increased joint pain lately. Has been stressed recently and forgot to take HCQ for a few days. Feels that the HCQ is improving her joint pain though since starting the medication. Continue HCQ 200mg BID and give this more time to take affect. Eye exam UTD 04/2018. Follow up in 3 months. Sooner if needed. Assessment & Plan (05/09/2018 4:39 PM CDT): Low cdai. Right 2nd MCP swollen, however no tenderness. No other joint pain or tenderness with minimal stiffness reported. Notes some improvement in her knees and hips since starting plaquenil last visit. Will increase plaquenil 200mg BID. Eye exam appointment this week. Routine labs today. Follow up in 2 months. Sooner if needed. Assessment & Plan (04/11/2018 2:34 PM SPECIALTY THERAPIST): US L hand/wrist (03/13/18): Moderate synovial thickening/effusion with grade 1 PD in the wrist. Mild 3rd MCP synovial thickening. Grade 1 PD in the 2nd and 4th PIPs on examination which will have to be correlated clinically. Low cdai. Bilateral 2nd MCP joints tender to palpation, however no obvious synovitis noted on exam today. Notes pain in her right external hip which appears to be bursitis and also her right 1st MTP which prior radiographs have revealed to be osteoarthritis. Noted improvement of pain while on meloxicam however stopped about 1 week ago and is noticing more joint pain and stiffness. Based on previous ambiguous serologies regarding rheumatoid factor as well as joint stiffness and PD seen in a few PIP joints on US, symptoms are suspicious for an underlying inflammatory arthritis such as a rheumatoid arthritis vs seronegative rheumatoid arthritis. Will stop meloxicam and start plaquenil 200mg daily. Risks of retinal toxicity were discussed with the patient. They are aware that they should get at least yearly eye exams, unless otherwise specified. Patient also given a handout of [id number] for trochanteric bursitis. Follow up in 1 month. Sooner if needed. Seen with Dr. Sargent. Assessment & Plan (03/09/2018 2:13 PM SPECIALTY THERAPIST): Recent labs showed a low positive rheumatoid factor and elevated CRP. Avise was negative for rheumatoid factor. Patient having some pain in her back, hips, shoulders, and feet today. Reports persistent stiffness in bilateral hands, but denies any swelling. No swelling noted on peripheral joint exam, however left 4th and 5th PIP joints are tender. Right elbow tender to palpation. Patient's serologies are ambiguous regarding the rheumatoid factor, however patient reports arthralgias and tenderness to a few PIP joints so will order a left hand/wrist US to further evaluate as her presentation could be early rheumatoid arthritis. Will start meloxicam 15mg daily for her arthralgias at this time. Discussed side effects of the medication, including but not limited to GI upset, kidney, and ulcers. Follow up in 1 month. Sooner if needed. Seen with Dr. Sargent. Assessment & Plan (02/15/2018 4:03 PM SPECIALTY THERAPIST): Patient presents with a low positive RF (20.2), elevated ESR, and joint pain and stiffness in her bilateral shoulders, hips, knees, and ankles for the past 3 months; however reports that most of her pain and stiffness has resolved in the past week despite no lifestyle or medication changes. Stiffness improves with activity and worsens with prolonged rest. Meloxicam 15mg daily offered no benefit. Questionable swelling noted in the right 2nd PIP joint without tenderness. Right 1st MTP swollen and tender. Hypermobility noted in bilateral elbows and wrists. Patient's history seems compatible with polymyalgia rheumatica that resolved without prednisone, so will continue to monitor for any new symptoms. Hypermobility noted on exam which can be an indicator for early OA. Will order appropriate serologies and radiographs to further evaluate. Follow up in 2 weeks. Sooner if needed. Seen with Dr. Sargent. Encounter for routine cancer follow-up 8 Malignant neoplasm of endocervix 10/24/2017 Cancer Staging:Clinical:FIGO Stage IB2(cT1b2, cM0) - Signed by Sana Campbell MD on 10/24/2017 Forgetfulness 04/23/2017 Stenosis of vagina 04/23/2017 Pain in female genitalia on intercourse 10/10/19 17 Diarrhea 06/28/2016 Asymmetrical sensorineural hearing loss 04/20/19 17 Tinnitus 04/06/2016 Essential tremor 12/30/2015 Malignant neoplasm of cervix 12/29/2015 Nevus, non-neoplastic 06/05/2012 Other benign neoplasm of skin, unspecified 06/05 Other seborrheic keratosis 06/05/2012 Photokeratitis 06/05/2012 Seborrheic dermatitis 06/05/2012 Personal history of malignant melanoma of skin 0 05/04/2010 Overview (06/23/2018): Overview: -2007, excised, BD 0.55mm -No evidence of recurrence Encounters Date Type Department Care Team Description 10/17/2024 Orders Only [address] [phone] Rasheeda Hobbs PA 10/17/[address] [phone] Bettie Alcantar 09/17/2024 Results Follow-Up [address] [phone] Rasheeda Hobbs PA Comprehensive metabolic panel, CBC with auto differential 09/14/2024 11:30 AM CDT Office Visit [address] [phone] Rasheeda Hobbs PA Inflammatory arthritis (Primary Dx); 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; Left elbow pain; Dry eyes 09/14/[address] [phone] Ayse Lemon from Last 3 Months Immunizations Immunization Administration Dates Next Due Tdap 11/03/2016 Surgical History Surgery Date Site/Laterality Comments CENTRAL LINE PLACEMENT > 5 YEARS 02/09/2016 N/A ABDOMINAL SURGERY Vaginal Ablation MOHS SURGERY 02/28/2006 - 02/27/2007 CARPAL TUNNEL RELEASE 02/29/2020 - 02/27/2021 Medical History Medical History Date Comments Cancer (HCC) Melanoma and Cer vical Ear problems Joint pain Arthritis Occasional tremors Carpal tunnel syndrome Autoimmune disease Tinnitus 04/06/2016 Chronic diarrhea Hypertension Family History Medical History Relation Name Comments Essential Tremor Brother Family hist ory of benign essential tremor - (Added by TW Conv) Relation Name Status Comments Brother Social History Tobacco Use Types Packs/Day Years Used Date Smoking Tobacco: Never Smokeless Tobacco: Never Tobacco Cessation:Counseling Given: Not Answered Alcohol Use Standard Drinks/Week Comments No 0 (1 standard drink = 0.6 oz pur e alcohol) AUDIT-C Answer Date Recorded Q1: How often do you have a drink containing alc ohol? Monthly or less 06/24/2021 Q2: How many drinks containi ng alcohol do you have on a typical day when you are drinking? 1 or 2 06/24/2021 Q3: How often do you have si x or more drinks on one occasion? Never 06/24/2021 Comments No Sex and Gender Information Value Date Recorded Sex Assigned at Not on file Legal Sex Female 8:34 AM SPECIALTY THERAPIST Gender Identity Not on file Sexual Orientation Not on file Obstetrics History Para Term AB IAB SAB Ectopic Multiple Livin g Live Births 2 2 2 2 2 Date Outcome GA Total Labor Labor/2nd/3rd Weight Sex Type Anes PTL Gneet A1 A5 Name Clin Term Term Last Filed Vital Signs Vital Sign Reading Time Taken Comments Blood Pressure 154/88 09/14/2024 11:24 AM CDT Pulse 76 09/14/2024 11:24 AM CDT Temperature 36.9 C (98.5 F) 04/22/2023 11:20 AM SPECIALTY THERAPIST Respiratory Rate 16 04/22/2023 11:20 AM SPECIALTY THERAPIST Oxygen Saturation 97% 09/14/2024 11:24 AM CDT Inhaled Oxygen Concentration - - Weight 97.5 kg (215 lb) 09/14/2024 11:24 AM CDT Height 162.6 cm (5' 4) 09/14/2024 11:24 AM CDT Body Mass Index 36.9 09/14/2024 11:24 AM CDT Plan of Treatment Scheduled Procedures Name Priority Associated Diagnoses Date/Ti me COLONOSCOPY Encounter for routine cancer follow-up Screening for colon cancer Health Maintenance Due Date Last Done Comments Depression Screening 1970 Hepatitis B Screening 1986 Regular Well Visit/Exam 18-64 1986 Pneumococcal vaccine <65 (1 of 2 - PCV) 11/08/1987 Zoster Vaccine (1 of 2) 11/08/1987 Breast Cancer Screening-Mammogram 03/16/2022 03/16/2021, 01/05/2018, 01/02/2016 Cervical Cancer Screening 04/22/20242023, 03/13/2021, 02/04/2020 Influenza Vaccine (#1) 2024 DTaP/Tdap/Td Vaccine (2 - Td or Tdap) 11/03/2026 11/03/2016 Colon Cancer Screening-Colonoscopy 06/25/20312021 Hepatitis C Screening Completed 02/15/2018 Colon Cancer Screening-CT Colonography Discontinued 06/24/2021 Colon Cancer Screening-DNA Stool Discontinued 06/25/19 Colon Cancer Screening-FIT Discontinued 06/24/2021 Colon Cancer Screening-Sigmoidoscopy Discontinued 05/30 Procedures Procedure Name Priority Date/Time Associated Diagnosis Comments CBC WITH AUTO DIFFERENTIAL Routine 09/14/2024 12:30 PM CDT Inflammatory arthritis 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 COMPREHENSIVE METABOLIC PANEL Routine 09/14/2024 12:30 PM CDT Inflammatory arthritis 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 PAP AND HIGH RISK HPV, REFLEX TO GENOTYPING Routine 04/22/2023 4:12 PM SPECIALTY THERAPIST Encounter for routine cancer follow-up Malignant neoplasm of endocervix (HCC) COLONOSCOPY 06/24/2021 2:23 PM CDT SCREENING MAMMOGRAM BILATERAL W MARYAM Schedule Routine, Read Routine (OP Routine) 03/16/2021 10:13 AM SPECIALTY THERAPIST Encounter for routine cancer follow-up Screening mammogram, encounter for HEPATITIS C ANTIBODY Routine 02/15/2018 4:02 PM SPECIALTY THERAPIST Polyarthralgia Fatigue, unspecified type from Last 3 Months or Most Recently Relevant to Health Maintenance Results * CBC with auto differential (09/14/2024 12:30 PM CDT) WBC 4.7 3.8 - 10.8 Thousand/u L [facility] RBC, POC 4.02 3.80 - 5.10 Million/uL [facility] Hgb 12.1 11.7 - 15.5 g/dL [facility] Hct 37.1 35.0 - 45.0 % [facility] MCV 92.3 80.0 - 100.0 fL [facility] MCH 30.1 27.0 - 33.0 pg [facility] MCHC 32.6 32.0 - 36.0 g/dL [facility] Comment: For adults, a slight decrease in the calculated MCHC value (in the range of 30 to 32 g/dL) is most likely not clinically significant; however, it should be interpreted with caution in correlation with other red cell parameters and the patient's clinical condition. Rdw 13.3 11.0 - 15.0 % [facility] Platelets 268 140 - 400 Thousand/u L [facility] MPV 9.3 7.5 - 12.5 fL [facility] Neutrophils, abs 3,093 1,500 - 7,800 cells/uL [facility] Lymphocytes, abs 1,062 850 - 3,900 cells/uL [facility] Monocyte abs 334 200 - 950 cells/uL [facility] Eosinophils, abs 193 15 - 500 cells/uL [facility] Basophils, abs 19 0 - 200 cells/uL [facility] Neutrophils 65.8 % [facility] Lymphocyte pct 22.6 % [facility] Monocytes 7.1 % [facility] Eosinophils 4.1 % [facility] Basophils 0.4 % [facility] Blood 09/14/2024 12:3 0 PM CDT 09/14/2024 12:30 PM CDT us Rasheeda DILLON LAB BLOOD ORDERABLES Final Result [facility] [id number] [address] [phone] * Comprehensive metabolic panel (09/14/2024 12:30 PM CDT) Pathologist [facility] Glucose 87 65 - 99 mg/dL [facility] Comment: Fasting reference interval BUN 13 7 - 25 mg/dL [facility] Creatinine 0.80 0.50 - 1.03 mg/dL [facility] eGFR 87 > OR = 60 mL/min/1.7 3m2 [facility] BUN/creat ratio SEE NOTE: 6 - 22 (calc) [facility] Comment: Not Reported: BUN and Creatinine are within reference range. Sodium 140 135 - 146 mmol/L [facility] Potassium, pl 4.2 3.5 - 5.3 mmol/L [facility] Chloride 103 98 - 110 mmol/L [facility] CO2 30 20 - 32 mmol/L [facility] Calcium 9.4 8.6 - 10.4 mg/dL [facility] Protein, sr 6.4 6.1 - 8.1 g/dL [facility] Albumin 4.3 3.6 - 5.1 g/dL [facility] GLOBULIN 2.1 1.9 - 3.7 g/dL (calc) [facility] Alb/glob ratio 2.0 1.0 - 2.5 (calc) [facility] Bilirubin, total 0.6 0.2 - 1.2 mg/dL [facility] Alk phos 94 37 - 153 U/L [facility] AST 17 10 - 35 U/L [facility] ALT (SGPT) 19 6 - 29 U/L [facility] Blood 09/14/2024 12:3 0 PM CDT 09/14/2024 12:30 PM CDT Rasheeda DILLON LAB BLOOD ORDERABLES Final Result [email or web address] [id number] [address] [phone] * Pap and High Risk HPV and Genotyping (Cytology Component) (04/22/2023 4:12 PM SPECIALTY THERAPIST) Thin prep (Pap test) 04/22/2023 4:12 PM SPECIALTY THERAPIST 04/22/2023 6:18 PM SPECIALTY THERAPIST Narrative PATHOLOGY [facility] - 04/28/2023 6:41 AM SPECIALTY THERAPIST EPIC results best viewed via link to PDF [facility] [place] [address] Note to Patients: This report may contain a detailed description of human tissue sent by a health care provider to the laboratory for pathologic evaluation. The content of this report is essential for diagnosis and may provide important critical findings. This information may be unfamiliar to patients to review without a medical professional present. It is advised that the patient review this report in the presence of a health care provider who can answer questions and explain the details. 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 FINAL INTERPRETATION SOURCE OF SPECIMEN Liquid based Thin Prep pap with HPV: STATEMENT OF ADEQUACY - Satisfactory for evaluation, vaginal smear GENERAL CATEGORIZATION: - Negative for squamous intraepithelial lesion or malignancy Comments (Normal-Negative for High Risk HPV) HPV HR 16 vaginal- Negative HPV HR 18 vaginal- Negative HPV HR non 16/18 vaginal- Negative Comment: The following Other High Risk HPV types were not detected: 31, 33, 35, 39, 45, 51, 52, 56, 58, 59, 66, and 68 ADDITIONAL INFORMATION Testing was performed using the elizabeth HPV assay ([employer] This test has been modified from the split leather mosser's instructions. Its performance characteristics were determined by [facility] in a manner consistent with CLIA requirements. This test has not been cleared or approved by the U.S. Food and Drug Administration. Test Performed by: [place] [id number] Airport Ramp Attendant: Lyle Franco M.D. Ph.D.; CLIA# [id number] [facility]/04/28/2023 06:41 JODIE Esquivel(ASCP) Report Electronically Reviewed and Signed Out By JODIE Esquivel(ASCP) 04/28/2023 06:41:32 Cervicovaginal Cytology (Pap Test) Disclaimer: The Pap test is a screening test used to detect cervical cancer and its precursors; it is not a diagnostic procedure. False negative and false positive results do occur. Pap test results should be interpreted in the context of pertinent clinical information and biopsy results as indicated. [facility] Clinical Laboratory Improvement Amendments (CLIA) mandate that cytologic and histologic results be correlated for laboratory quality management nurse & improvement standards. FOR ALL HIGH-GRADE CASES we request submission of follow-up histological material and/or reports that have not been previously provided so that we may fulfill said required standards. Gross Description A. Liquid based Thin Prep pap with HPV: Vaginal - Screening ThinPrep Clinical Diagnosis and History Last Menstrual Period: unknown The patient is a 52 year old female with history 1B2 scca cervix s/p chemoRT; vaginal atrophy. Report Images and scanned documents, if included only viewable in PDF version The performance characteristics of some immunohistochemical stains, in-situ hybridization and fluorescence in-situ hybridization tests and immunophenotyping by flow cytometry cited in this report (if any) were determined by the Surgical Pathology Department at [facility] as part of an ongoing ict quality assurance engineer program and in compliance with federally mandated regulations drawn from the Clinical Laboratory Improvement Act of 1988 (CLIA '88). Some of these tests rely on the use of analyte specific reagents and are subject to specific labeling requirements by the US Food and Drug Administration. Such diagnostic tests may only be performed in a facility that is certified by the Department of Health and Human Services as a high complexity laboratory under CLIA '88. The FDA has determined that such clearance or approval is not necessary. This test is used for clinical purposes. It should not be regarded as investigational or for research. Nevertheless, federal rules concerning the medical use of analyte specific reagents require that the following disclaimer be attached to the report: This test was developed and its performance characteristics determined by the Surgical Pathology Department of [facility]. It has not been cleared or approved by the U. S. Food and Drug Administration. Sana Campbell MD LAB CYTOLOGY ORDERABLES Final Result PATHOLOGY [facility] 3rd Floor [place], [place] [phone] * COLONOSCOPY (06/24/2021 2:23 PM CDT) Anatomical Region Laterality Modality Other Narrative Procedure Note Mercy Gong MD - 06/24/2021 2:23 PM CDT [facility] Patient Name: Babs Prince Procedure Date: 06/24/2021 2:23 PM Date of : 1970 Admit Type: Outpatient Age: 50 Gender: Female Attending MD: Joni Brenner Room: [facility] ENDOSCOPY ROOM 3 Note Status: Finalized Procedure: Colonoscopy Indications: Screening for colorectal malignant neoplasm, Last colonoscopy: 2019, 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 Underlyingcervical cancer s/p chemoradiation therapy. Referring MD: Sana Campbell M.D. Providers: Mercy Gong M.D. Medicines: Monitored Anesthesia Care Complications: No immediate complications. Estimated Blood Loss: Estimated blood loss was minimal. Procedure: Pre-Anesthesia Assessment: - Prior to the procedure, a History and Physicalwas performed, and patient medications, allergies and sensitivities were reviewed. The patient'stolerance of previous anesthesia was reviewed. - Immediately prior to administration ofmedications, the patient was re-assessed for adequacy to receive sedatives. - The risks and benefits of the procedure and the sedation options and risks were discussed with the patient. All questions were answered and informed consent was obtained. The benefits, risks and alternatives of theprocedure and sedation were discussed and informed consentwas obtained. All questions were answered. Please referto the signed informed consent document in the medical record. The scope was passed under direct vision.The [id number] endoscope was introduced through the anus and advanced to the cecum, identified by appendiceal orifice and ileocecal valve. The colonoscopy was performed without difficulty. The patient tolerated the procedure well. The qualityof the bowel preparation was evaluated using the BBPS ([place] Bowel Preparation Scale) with scores of:Right Colon = 2 (minor amount of residual staining, small fragments of stool and/or opaque liquid, but mucosa seen well), Transverse Colon = 3 (entire mucosaseen well with no residual staining, small fragments of stool or opaque liquid) and Left Colon = 3 (entire mucosa seen well with no residual staining, small fragments of stool or opaque liquid). The totalBBPS score equals 8. The bowel preparation used was GoLYTELY via split dose instruction. The quality of the bowel preparation was good. Findings: The perianal and digital rectal examinations were normal. Non-bleeding internal hemorrhoids were found during endoscopy. The hemorrhoids were mild. A localized area of mildly altered vascular mucosa was found in the rectum. 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 The exam was otherwise without abnormality. Retroflexion in the rectum was not performed due to abnormalanatomy. Biopsies for histology were taken with a cold forceps from the entire colon for evaluation of microscopic colitis. Impression: - Non-bleeding internal hemorrhoids. - Altered vascular mucosa in the rectum. - The examination was otherwise normal. - Biopsies were taken with a cold forceps from the entire colon for evaluation of microscopiccolitis. Recommendation: - Discharge patient to home. - Await pathology results. - Repeat colonoscopy in 10 years for screening purposes. - Return to referring physician as previously scheduled. - We performed biopsies during your proceduretoday. If you do not receive the result from my office in, please contact my office at [phone]. Electronically signed by Mercy Gong MD Mercy Gong M.D. 06/24/2021 3:05:42 PM . Number of Addenda: 0 Note Initiated On: 06/24/2021 2:23 PM Recognized by the [place] [employer] for promoting quality in endoscopy us Mercy Gong MD ENDOSCOPY PROCEDUR ES Final Result * SCREENING MAMMOGRAM BILATERAL W MARYAM (03/16/2021 10:13 AM SPECIALTY THERAPIST) Anatomical Region Laterality Modality Breast Bilateral Mammography Narrative 03/19/2021 10:13 AM SPECIALTY THERAPIST Mammogram Technique: Bilateral Digital Breast Tomosynthesis, Bilateral C-view 2D Screening mammogram. Views obtained: bilateral craniocaudal and bilateral mediolateral oblique. Computer Aided Detection was performed. Mammogram Findings: The present examination has been compared to prior imaging studies performed at [facility] on 01/02/2016, 02/05/2016 and 01/05/2018. The breasts are heterogeneously dense, which may obscure small masses. There are multiple masses in both breasts. Impression: Masses in both breasts are benign. Annual screening mammography is recommended. OVERALL FINAL ASSESSMENT: BI-RADS CATEGORY 2: Benign. Procedure Note Deborah Burks MD - 03/19/2021 Mammogram Technique: Bilateral Digital Breast Tomosynthesis, Bilateral C-view 2D Screening mammogram. Views obtained: bilateral craniocaudal and bilateral mediolateral oblique. Computer Aided Detection was performed. Mammogram Findings: The present examination has been compared to prior imaging studies performed at [facility] on 01/02/2016, 02/05/2016 and 01/05/2018. The breasts are heterogeneously dense, which may obscure small masses. There are multiple masses in both breasts. Impression: Masses in both breasts are benign. Annual screening mammography is recommended. OVERALL FINAL ASSESSMENT: BI-RADS CATEGORY 2: Benign. Sana Campbell MD IMG MAMMO PROCEDURES Fi nal Result * Hepatitis C antibody (02/15/2018 4:02 PM SPECIALTY THERAPIST) Hep C Ab NON-REACTI VE NON-REACTI VE [facility] [place] SIGNAL TO CUT-OFF 0.01 <1.00 [facility] [place] Blood specimen (specimen) 02/15/2018 4:02 PM SPECIALTY THERAPIST 02/15/2018 4:03 PM SPECIALTY THERAPIST Narrative Resulting Agency Comment Performing Organization Information: Site ID: [id number] Name: [facility] Address: [address] [place] [address] Director: Lyle Bethea D.O., MPH [facility] - GE NERAL ORDERABLES Final Result [facility] [place] from Last 3 Months or Most Recently Relevant to Health Maintenance Insurance ANTHEM ACCESS CHOICE ANTHEM ACCESS ANTHEM TRADITIONAL GENERAL [facility] Advance Directives For more information, please contact: [phone] * Full Code (Latest Code Status on File) Date Activated Date Inactivated Comments 06/24/2021 1:42 PM 06/24/2021 7:53 PM Care Teams Trouble Tracer Relationship Specialty Start Date End Date Alma Herrera MD PCP - General 05/10/16 Lorraine Maki MD PhD [address] [facility] [address] [place] [address] Radiation Oncologist Radiation Oncology 01/25/18 Sana Campbell MD [address] [facility] [id number] [place] [address] Referring Physician Gynecologic Oncology 01/25/18 Rosemary Elizalde MD [address] [place] [address] Referring Physician Family Medicine 07/07/18 De Granados MD [address] [place] [address] Consulting Physician Rheumatology 03/03/23
--- OUTSIDE RECORDS SUMMARY | 2024-11-23 12:22 | XMS_ITS | Patient Health Record ---
Author Organization [facility], Address [address] [place] [address] Care Team Providers Care Relations Mgr Name Role Phone Alma Herrera Primary Care Provider Devin Carrasquillo Unavailable [phone] ALLERGIES No Known Allergies REASON FOR REFERRAL No Information MEDICATIONS Medication SIG (Take, Route, Frequency, Duration) Notes Start Date End Date Status Voltaren Active Estradiol Active Plaquenil Active Lisinopril Active HYDROcodone-Acetaminophe n 5-325 MG 1 tablet as needed Orally every 6 hrs 12/29/2020 Not-Taking SOCIAL HISTORY Sex Assigned At : Social History Observation Description Sex Assigned At Unknown PROBLEMS Problem Type ICD Code Onset Dates Problem Status W/U Status Risk SNOMED Code Notes Problem Carpal tunnel syndrome of right wrist (G56.01) Active confirmed 23102450 Problem Carpal tunnel syndrome of left wrist (G56.02) Active confirmed [id number] Problem Bilateral carpal tunnel syndrome (G56.03) Active confirmed Bilateral carpa l tunnel syndrome ([id number]) Problem Left carpal tunnel syndrome (G56.02) Active confirmed [id number] PLAN OF TREATMENT No Information Insurance Providers Payer Name Payer Address Payer Phone Subscriber Number Group Number Insured Name Patient Relationship to Insured Coverage Start Date Coverage End Date Christine TISH [place] Federal [address] [email or web address] [place] [address] [id number] Sebastian Prince Spouse - patient is the spouse of the insured MEDICAL (GENERAL) HISTORY Medical History History ICD Code Hypertension Cancer Rheumatoid Arthritis Surgical History Surgery Date(Month/Year) Mohs-Melanoma removal 08/2006 C- Sections [id number] Left Endoscopic Carpal Tunnel Release
--- OUTSIDE RECORDS SUMMARY | 2024-11-23 12:22 | XMS_ITS | Clinical Summary ---
Author Organization [facility] Address [address] [place] [id number] Care Team Providers Care Calculus Teacher Name Role Phone Alma Herrera MD Primary Care Provider [phone] Active Problems Problem Noted Date Diagnosed Date Left knee pain 07/26/2023 Social History Tobacco Use Types Packs/Day Years Used Date Smoking Tobacco: Never Assessed Comments Unknown Sex and Gender Information Value Date Recorded Sex Assigned at Not on file Legal Sex Female 3:14 PM CDT Gender Identity Not on file Sexual Orientation Not on file Plan of Treatment Health Maintenance Due Date Last Done Comments Cervical Cancer Screening Pa p Smear (Age 30 to 64) Every 3 Years 1968 Colorectal Cancer Screening Colonoscopy (10 Years) 1968 Annual Physical 11/08/1971 Hepatitis C 1986 Hepatitis B Vaccines (1 of 3 - 19+ 3-dose series) 11/08/1987 Cervical Cancer Screening Pa p with HPV Testing (Age 30 to 64) Every 5 Years 1998 Cervical Cancer Screening with HPV 1998 Mammogram Screening 2008 Pneumococcal Vaccine: 50+ Ye ars (1 of 1 - PCV) 2018 Zoster Vaccines (1 of 2) 2018 COVID-19 Vaccine ( - 2023-2 5 season) 2024 DTaP, Tdap and Td Vaccines ( 2 - Td or Tdap) 11/03/2026 11/03/2016 Meningococcal B Vaccine Aged Out No l onger eligible based on patient's age to complete this topic Meningococcal Vaccine Aged Out No arun arvind eligible based on patient's age to complete this topic RSV Immunizations Under 20 Months Aged Out No longer eligible based on patient's age to complete this topic Insurance [facility] Care Teams Calculus Teacher Relationship Specialty Start Date End Date Alma Herrera MD [address] [place] [address] PCP - General FAMILY PRACTICE 07/26/23
--- OUTSIDE RECORDS SUMMARY | 2024-11-23 12:22 | XMS_ITS | Encounter Summary ---
Author Organization [facility] Address [address] [place] [address] Phone Care Team Providers Care Warp Spooler Name Role Phone Alma Herrera MD Primary Care Provider [phone] Lorraine Maki MD PhD Unavailable + Sana Campbell MD Unavailable Arie IVORY MD, Bhanu Jameson Unavailable [phone] Rosemary Elizalde MD Unavailable [phone] Angel Stokes MD Unavailable [phone] De Granados MD Unavailable [phone] Encounter Details Date Type Department Care Team (Late st Contact Info) Description 07/21/2017 Orders Only [facility] ProviderTracey MD [address] [place] [address] Social History Tobacco Use Types Packs/Day Years Used Date Smoking Tobacco: Never Assessed Comments Unknown Sex and Gender Information Value Date Recorded Sex Assigned at Not on file 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 Gender Identity Not on file Sexual Orientation Not on file documented as of this encounter Plan of Treatment Scheduled Procedures Name Priority Associated Diagnoses Date/Ti me COLONOSCOPY Encounter for routine cancer follow-up Screening for colon cancer documented as of this encounter Procedures Procedure Name Priority Date/Time Associated Diagnosis Comments GENERAL RADIOLOGY REPORT 07/21/2017 DISCHARGE LABORATORY CUMULATIVE REPORT 07/21/2017 12:00 AM CDT documented in this encounter Results * DISCHARGE LABORATORY CUMULATIVE REPORT (07/21/2017 12:00 AM CDT) Narrative 07/21/2017 12:00 AM CDT Ordered by an unspecified provider. us Historical Provider LAB BLOOD ORDERABLES Stephie l Result * GENERAL RADIOLOGY REPORT (07/21/2017) Anatomical Region Laterality Modality Radiographic [place] ging Narrative 07/21/2017 Ordered by an unspecified provider. Historical Provider IMG XR PROCEDURES Final R esult documented in this encounter Visit Diagnoses Not on filedocumented in this encounter Care Teams Warp Spooler Relationship Specialty Start Date End Date Alma Herrera MD PCP - General 05/10/16 Lorraine Maki MD PhD [address] [facility] # [address] [place] [address] Radiation Oncologist Radiation Oncology 01/25/18 Sana Campbell MD [address] [id number] [place] [address] Referring Physician Gynecologic Oncology 01/25/18 Bhanu Sargent III, MD [address] [place] [address] Consulting Physician Rheumatology 01/30/18 03/01/23 Rosemary Elizalde MD [address] [place] [address] Referring Physician Family Medicine 07/07/18 Angel Stokes MD [address] [place] [address] Consulting Physician Rheumatology 03/02/23 03/02/23 De Granados MD [address] [place] [address] Consulting Physician Rheumatology 03/03/23 documented as of this encounter
== END 2024-11-23 12:19 | disposition home or self-care (01) ==
LOC: CHSIMG 12:20
PROVIDERS: PCP Family Medicine; Visit Provider Family Medicine
DX: M54.2 Cervicalgia (principal)
CPT/HCPCS: 72050